=== PATIENT | male | born 1960 | race Two or more races ===

== ENCOUNTER 2022-12-21 08:55 | Day surgery (SDC) | payer MEDICAID ==
[2022-12-16 10:07] LABS: Albumin 3.6 g/dL (3.4-5.0); Calcium 9.2 mg/dL (8.5-10.1); Potassium 4.4 mmol/L (3.5-5.1)
[2022-12-16 10:11] LABS: BUN/Creatinine Ratio 10.2 (10.0-20.0)
[2022-12-16 10:12] LABS: Bilirubin, Total 0.3 mg/dL (0.2-1.0); Total Protein 7.3 g/dL (6.4-8.2)
[2022-12-16 10:18] LABS: INR 0.91 (0.9-1.15); Partial Thromboplastin Time 30.8 sec (24.6-33.4)
[2022-12-16 10:31] LABS: Basophils # (auto) 0.1 10 ^3/uL (0-0.2); Basophils % (auto) 0.5 % (0.0-2.0); Eosinophils # (auto) 0.3 10 ^3/uL (0-0.8); Eosinophils % (auto) 3.3 % (0.0-7.0); Hematocrit 46.4 % (41.0-53.0); Hemoglobin 15.8 g/dL (13.5-17.5); Lymphocytes # (auto) 3.3 10 ^3/uL (0.4-5.4); Lymphocytes % (auto) 32.6 % (10.0-50.0); Mean Corpuscular Hemoglobin 30.8 pg (28.0-32.0); Mean Corpuscular Volume 90.6 fL (80.0-100.0); Monocytes # (auto) 0.7 10 ^3/uL (0-1.3); Monocytes % (auto) 7.1 % (0.0-12.0); Neutrophils # (auto) 5.8 10 ^3/uL (1.6-8.6); Neutrophils % (auto) 56.5 % (37.0-80.0); Nucleated Red Blood Cells % 0.1 %; Red Blood Cells 5.12 10^6/uL (4.5-5.90); White Blood Cell 10.3 10^3/uL (4.4-10.8)
[2022-12-16 10:32] LABS: Urine Bacteria NONE SEEN /hpf (None Seen); Urine Blood Negative /uL (Negative); Urine Specific Gravity 1.019 (1.001-1.035); Urine WBC <1 /hpf (0 - 3)
[~2022-12-21] VITALS: Ht 170.2 cm; Wt 85.3 kg
[~2022-12-21 08:55] MED LIST: ALBU2TAB4 PO; ATOR80TA PO; DILT240C59 PO; HYDR-4798 PO; IBU600T PO; LISI20TA28 PO; TRAZ-181 PO
[2022-12-21] MEDS ORDERED: ceFAZolin 1GM/50ML 100 ML IV ONE (09:15)
[2022-12-21] MEDS ORDERED: MIDAZOLAM HCL 2MG/2ML 2ml VIAL (1mg/ml) ONE (10:24)
[2022-12-21] MEDS ORDERED: fentaNYL CITRATE 100 MCG/2 ML VL ONE (10:24)
[2022-12-21] MEDS ORDERED: PROPOFOL 10 MG/ML 20 ML IV ONE (10:25)
[2022-12-21] MEDS ORDERED: SODIUM CHLORIDE LOCK 10 ML ONE (10:25)
[2022-12-21] MEDS ORDERED: ONDANSETRON HCL 4 MG/2 ML VIAL ONE (10:25)
[2022-12-21] MEDS ORDERED: hydrALAZINE HCL 20 MG/ML VL ONE (12:49)
[2022-12-21 14:00] VITALS: BP 132/68
== END 2022-12-21 14:10 | disposition home or self-care (01) ==
LOC: SUR 08:55
PROVIDERS: ATTEND Podiatrist
DX: M20.42 Other hammer toe(s) (acquired), left foot (principal); Z20.822 Contact with and (suspected) exposure to COVID-19; F41.9 Anxiety disorder, unspecified; I10 Essential (primary) hypertension; E66.9 Obesity, unspecified; Z68.31 Body mass index [BMI] 31.0-31.9, adult; R73.03 Prediabetes; Z79.899 Other long term (current) drug therapy
CPT/HCPCS: 28285; 36415; 80053; 81001; 85025; 85610; 85730; J0360; J0690; J2250; J2405; J2704; J3010; U0003